=== PATIENT | female | born 1965 | race Caucasian/White ===

== ENCOUNTER 2022-04-04 14:11 | Emergency (ER) | payer SELFPAY ==
[~2022-04-04] VITALS: Ht 157.5 cm; Wt 59.4 kg
[2022-04-04 14:31] VITALS: BP 121/75
[2022-04-04] MEDS ORDERED: KETOROLAC 30 MG/ML VIAL IVP ONE (15:10)
[2022-04-04] MEDS ORDERED: NACL 0.9% 1,000 ML IV ONE (15:10)
[2022-04-04 15:16] LABS: APPEARANCE,URINE CLEAR (CLEAR); BILIRUBIN,URINE NEGATIVE (NEGATIVE); BLOOD, URINE 2+ (NEGATIVE); COLOR,URINE YELLOW (YELLOW); LEUKOCYTE ESTERASE ,URINE TRACE (NEGATIVE); NITRITE, URINE NEGATIVE (NEGATIVE); UGLUCOSE 3+ (NEGATIVE)
[2022-04-04 15:29] LABS: BASOPHILS % (AUTO) 0.2 % (0.0-2.0); EOSINOPHILS % (AUTO) 0.1 % (0.0-4.0); HEMATOCRIT 37.2 % (36-48); HEMOGLOBIN 12.2 g/dL (12.0-16.0); LYMPHOCYTES # (AUTO) 0.8 K/uL (2.5-16.5); LYMPHOCYTES % (AUTO) 6.4 % (20.5-51.1); MEAN CORPUSCULAR HEMOGLOBIN 27 pg (27-31); MEAN CORPUSCULAR HGB CONC 33 g/dL (33-37); MEAN CORPUSCULAR VOLUME 83.3 fL (80-94); MONOCYTES # (AUTO) 0.7 K/uL (0.8-1.0); MONOCYTES % (AUTO) 5.5 % (1.7-9.3); NEUTROPHILS # (AUTO) 11.3 K/uL (1.8-7.7); NEUTROPHILS % (AUTO) 87.8 % (42.2-75.2); PLATELET COUNT (AUTO) 248 K/uL (140-450); RED BLOOD CELL COUNT(AUTO) 4.46 MIL/uL (4.20-5.40); RED CELL DISTRIBUTION WIDTH 12.7 % (11.6-13.7); WHITE BLOOD COUNT (AUTO) 12.9 K/uL (4.8-10.8)
[2022-04-04] MEDS ORDERED: cefTRIAXone 1,000 MG VIAL ONE (15:39)
--- NOTE | 2022-04-04 15:52 | NUR ---
57 y/o female bib son for c/o bilateral flank pain, subjective fever and chills x 2 days. Per patient, she had a phone appointment and was diagnosed with vaginal infection. Patient is on Ciprofloxacin and Ibuprofen. Denies any dysuria. Medical History: DM NKDA
[2022-04-04 16:16] LABS: ANION GAP 13.4 (8-16); CARBON DIOXIDE 24.1 mmol/L (21-32); CREATININE 0.6 mg/dL (0.6-1.3); POTASSIUM 4.5 mmol/L (3.5-5.1); TOTAL BILIRUBIN 0.4 mg/dL (0.0-1.0)
[2022-04-04 16:27] LABS: RBC,URINE 0-5 /HPF (0-5); WBC,URINE TOO MANY TO COUNT /HPF (0-5)
[2022-04-04] MEDS ORDERED: PYR100 PO (16:33)
[2022-04-04] MEDS ORDERED: IBUP-2213 PO (16:33)
[2022-04-04] MEDS ORDERED: CEPH-588 PO (16:33)
[2022-04-04 16:50] VITALS: BP 108/57
--- NOTE | 2022-04-04 16:50 | NUR ---
Patient discharged with v/s stable. Written and verbal after care instructions given. Patient alert, oriented and verbalized understanding of instructions. Ambulatory with steady gait. All questions addressed prior to discharge. ID band removed. Patient advised to follow up with PMD. Rx of Keflex, Ibuprofen and Pyridium given. Opportunity to ask questions provided and answered.
--- NOTE | 2022-04-04 16:51 | NUR ---
The patient's care was reviewed and supervised by Ngoc Mohr RN.
== END 2022-04-04 16:50 | disposition home or self-care (01) ==
LOC: MED 14:11
DX: N39.0 Urinary tract infection, site not specified (principal); E11.9 Type 2 diabetes mellitus without complications; Z79.4 Long term (current) use of insulin; Z79.899 Other long term (current) drug therapy
CPT/HCPCS: 36415; 80053; 81001; 81025; 83605; 85025; 87086; 96365; 96375; 99284; J0696; J1885; J7030

== ENCOUNTER 2023-04-17 00:45 | Emergency (ER) | payer MEDICAID, OTHER ==
[~2023-04-17] VITALS: Ht 157.5 cm; Wt 61.2 kg
[~2023-04-17 00:45] MED LIST: CEPH-588 PO; IBUP-2213 PO; PYR100 PO
[2023-04-17 01:15] VITALS: BP 152/82; PULSE 112; RESP 22; TEMP 98.7; O2SAT 97
[2023-04-17] MEDS ORDERED: KETOROLAC 30 MG/ML VIAL IM ONE (02:40)
[2023-04-17 02:41] LABS: FLU A ANTIGEN negative (NEGATIVE); FLU B ANTIGEN NEGATIVE (NEGATIVE)
[2023-04-17 02:45] LABS: APPEARANCE,URINE CLEAR (CLEAR); BILIRUBIN,URINE NEGATIVE (NEGATIVE); BLOOD, URINE NEGATIVE (NEGATIVE); COLOR,URINE YELLOW (YELLOW); LEUKOCYTE ESTERASE ,URINE 1+ (NEGATIVE); NITRITE, URINE NEGATIVE (NEGATIVE); PROTEIN,URINE NEGATIVE (NEGATIVE); UGLUCOSE 3+ (NEGATIVE); UROBILINOGEN,URINE 0.2 EU/dL (0.2 - 1)
[2023-04-17 02:47] LABS: RBC,URINE 0-5 /HPF (0-5)
[2023-04-17 02:48] LABS: BACTERIA,URINE >30 (MANY) /HPF (None Seen); MUCUS,URINE 1+ /LPF (None Seen); SQUAMOUS EPITHELIAL CELL,UR 0-3 (FEW) /LPF (0-3 (FEW))
[2023-04-17] MEDS ORDERED: cefTRIAXone 1,000 MG in LIDOCAINE MPF 1% 2.1 ML IM ONE (03:05)
[2023-04-17] MEDS ORDERED: LIDOCAINE MPF 1% 5 ML ONE (03:14)
[2023-04-17] MEDS ORDERED: cefTRIAXone 1,000 MG VIAL ONE (03:14)
[2023-04-17] MEDS ORDERED: CEPH-588 PO (04:06)
[2023-04-17] MEDS ORDERED: NAPR-54 PO (04:06)
[2023-04-17 04:18] VITALS: BP 120/81; PULSE 99; RESP 20; TEMP 98.7; O2SAT 97
== END 2023-04-17 04:18 | disposition home or self-care (01) ==
LOC: MED 00:45
DX: N39.0 Urinary tract infection, site not specified (principal); Z20.822 Contact with and (suspected) exposure to COVID-19; E11.9 Type 2 diabetes mellitus without complications; Z79.4 Long term (current) use of insulin; Z79.899 Other long term (current) drug therapy
CPT/HCPCS: 71045; 81001; 87086; 87426; 87804; 96372; 99284; J0696; J1885; J2001; Q0092